=== PATIENT | male | born 1985 | race Caucasian/White ===

== ENCOUNTER 2018-04-18 17:52 | Emergency (ER) | payer OTHER ==
[~2018-04-18] VITALS: Ht 182.9 cm; Wt 100.0 kg
[2018-04-18 19:14] VITALS: BP 138/81
== END 2018-04-18 19:16 | disposition home or self-care (01) | DRG 951 ==
LOC: ED 17:52
PROC: 3E0234Z Introduction of Serum, Toxoid and Vaccine into Muscle, Percutaneous Approach (ICD-10-PCS; principal; 2018-04-18)
DX: Z23 Encounter for immunization (principal); F17.210 Nicotine dependence, cigarettes, uncomplicated